=== PATIENT | male | born 1945 | race Caucasian/White ===

== ENCOUNTER 2023-01-30 21:33 | Outpatient (CLI) | payer MEDICARE, SELFPAY | END 2023-01-30 21:34 | disposition home or self-care (01) | LOC: AMB 01-31 11:58 | PROVIDERS: PCP Surgery; Visit Provider Family Medicine | DX: R07.89 Other chest pain (principal) | CPT/HCPCS: A0425; A0427 ==

== ENCOUNTER 2023-01-30 21:59 | Emergency (ER) | payer MEDICARE, SELFPAY ==
[2023-01-30] VITALS (13 sets, daily range): BP systolic 80–120; BP diastolic 40–94; PULSE 44–59; RESP 11–23; TEMP 35.6; O2SAT 91–99; BMI 23.4
--- NOTE | 2023-01-30 22:02 | CRLHL7_ITS ---
For Patients: As a result of the Cures Act, medical imaging exams and procedure reports are released immediately into your electronic medical record. You may view this report before your referring provider. If you have questions, please contact your health care provider. INDICATION: Chest pressure. TECHNIQUE: Chest 1 view. COMPARISON: March 15, 2020. FINDINGS: Cardiovascular and mediastinum: Cardiomediastinal silhouette is within normal limits. Lungs and pleural spaces: Lungs are clear. No evidence of pleural effusion. No pneumothorax identified. Bones and soft tissues: Unremarkable. Median sternotomy wires are noted. IMPRESSION: No acute cardiopulmonary process identified. No significant interval change. Dictated by Domenico Melendez MD @ 01/30/2023 11:01:47 PM (Electronically Signed)
[2023-01-30] MEDS: ONDANSETRON 2 MG/ML inj 4 MG IVP (22:15)
[2023-01-30] MEDS: MORPHINE 4 MG/ML INJ IVP (22:20)
--- NOTE | 2023-01-30 22:20 | ED.CHESTPAIN ---
HPI - Chest Pain General Chief Complaint: Chest Pain Stated Complaint: Chest Pain Time Seen by Provider: 01/30/23 22:02 History of Present Illness HPI narrative: 77-year-old man with a history of coronary artery disease with history of bypass and stenting about an hour prior to arrival in the emergency department and had, while at rest, abrupt onset of severe chest tightness and pressure. Has been making him feel short of breath. Was in usual state of health prior to this. He described alternatively like indigestion as well to EMS. Is not getting regular medical cares. He is unclear initial interview about where he has received cares and degree of pain but EMS says that he had rated 8/10. He does become nauseated during initial interview/triage. EMS has given aspirin and fentanyl. He remains in pain. No heart failure history on brief review of records. Related Data Allergies Allergy/AdvReac Type Severity Reaction Status Date / Time No Known Drug Allergies Allergy Verified 01/30/23 22:28 Review of Systems Status of ROS Reports: 10 or more systems reviewed and unremarkable except as noted in History and below Exam Narrative Exam Narrative: Mr. Downing arrives with eyes closed clearly uncomfortable. Breathing easily. Skin looks sallow/greene. He is diaphoretic. Mucous membranes are moist. Lungs appear to be clear. Heart in regular rate and rhythm. Extremities are well perfused without edema. Moving all extremities without difficulty. Numerous 2 through 12 look to be intact. Abdomen is soft seems little tender in the epigastrium on initial palpation though on repeat this is not the case. No pulsatile masses. Pain is not reproducible to palpation across the chest. He has well-healed scar consistent with sternotomy. Const Vital Signs, click to edit/add: Vital Signs - 24 hr 01/30/23 22:23 01/30/23 22:26 01/30/23 22:04 Temperature 96.0 F L 96.0 F L Pulse Rate 48 L Pulse Rate [Right Pulse Oximeter] 50 L Respiratory Rate 16 16 18 Blood Pressure 105/57 L Blood Pressure [Right Upper Arm] 113/94 H 120/57 L Pulse Oximetry 97 96 Oxygen Delivery Method Nasal Cannula Room Air Oxygen Flow Rate 4 01/30/23 22:08 01/30/23 22:10 01/30/23 22:15 Temperature Pulse Rate Pulse Rate [Right Pulse Oximeter] 59 L 57 L 50 L Respiratory Rate 20 23 21 Blood Pressure Blood Pressure [Right Upper Arm] 105/57 L 113/94 H 80/40 L Pulse Oximetry 91 93 96 Oxygen Delivery Method Oxygen Flow Rate 01/30/23 22:18 01/30/23 22:20 01/30/23 22:25 Temperature Pulse Rate Pulse Rate [Right Pulse Oximeter] 47 L 52 L 44 L Respiratory Rate 17 11 L 16 Blood Pressure Blood Pressure [Right Upper Arm] 95/46 L 93/47 L 89/47 L Pulse Oximetry 98 96 97 Oxygen Delivery Method Oxygen Flow Rate 01/30/23 22:30 01/30/23 22:35 01/30/23 23:03 Temperature Pulse Rate Pulse Rate [Right Pulse Oximeter] 53 L 45 L Respiratory Rate 16 20 Blood Pressure Blood Pressure [Right Upper Arm] 97/45 L 95/53 L Pulse Oximetry 96 99 94 Oxygen Delivery Method Nasal Cannula Oxygen Flow Rate 2 01/30/23 23:04 Temperature Pulse Rate Pulse Rate [Right Pulse Oximeter] Respiratory Rate Blood Pressure Blood Pressure [Right Upper Arm] Pulse Oximetry 97 Oxygen Delivery Method Nasal Cannula Oxygen Flow Rate 2 Documenting provider has reviewed patient's vital signs: yes Course Vital Signs Vital signs: Initial Vital Signs Respiratory Rate 18 01/30/23 22:04 Blood Pressure 120/57 L 01/30/23 22:04 Blood Pressure Mean 78 01/30/23 22:04 Blood Pressure Position High-Fowlers 01/30/23 22:04 Vital Signs Respiratory Rate 18 01/30/23 22:04 Blood Pressure 120/57 L 01/30/23 22:04 Temperature 96.0 F L 01/30/23 22:26 Pulse Rate 45 L 01/30/23 22:35 Respiratory Rate 20 01/30/23 22:35 Blood Pressure 95/53 L 01/30/23 22:35 Pulse Oximetry 97 01/30/23 23:04 Oxygen Delivery Method Nasal Cannula 01/30/23 23:04 Oxygen Flow Rate 2 01/30/23 23:04 MDM - Chest Pain MDM Narrative Medical decision making narrative: EKG on review from EMS does appear to show STEMI inferior wall. EKG obtained here with same on my read. Complaining of nausea as ordered for Zofran. Already has a couple lines going. We have initiated After 1st nitro pain 0-2 continues with eyes closed appears to be uncomfortable. After reviewing initial EKG place a call to [facility] as I believe him to be an [facility] patient. And we call for helicopter. Unfortunately helicopter would not be arriving here for at least 40 minutes. Initiating level 1 medication protocols and asking ground crew who brought Mr. Watson in to take him to [facility] as they have accepted him in cares. Point of care troponin I does return at 0.63 Chest x-ray reviewed seems to show some left auricular maybe pulmonary trunk fullness, no infiltrate, no pneumothorax, sternotomy wires are noted, normal mediastinum otherwise. On 2 L of fluid bolus with soft pressures drifting to 80s over 40s. Have hung a 3rd bag. Do not see evidence of otherwise of heart failure. There are concerns though of fluid overload potential. Hanging norepinephrine drip if needed. I have discussed this also with mobile battery technician Dr. Carroll. Medical Records Data Attestation: I reviewed the patient's medical records. Lab Data Attestation: I reviewed the patient's lab results. Labs: Lab Results 01/30/23 01/30/23 01/30/23 Range/Units 22:03 22:08 22:08 WBC 8.75 (4.50-11.00) K/uL RBC 4.78 (4.30-5.90) m/uL Hgb 14.4 (13.5-17.5) gm/dL Hct 42.9 (37.0-53.0) % MCV 90 (80-100) fL MCH 30 (26-34) pg MCHC 34 (32-36) gm/dL Plt Count 188 (140-440) K/uL Neut % (Auto) 71.0 (42.0-72.0) % Lymph % (Auto) 18.7 L (20-44) % [place] % (Auto) 6.6 (0.0-11.0) % Eos % (Auto) 2.7 (0.0-7.0) % Baso % (Auto) 0.3 (0.0-3.0) % Neut # (Auto) 6.20 (1.7-7.0) K/uL Lymph # (Auto) 1.60 (0.90-2.90) K/uL [place] # (Auto) 0.60 (0.00-0.90) K/UL Eos # (Auto) 0.20 (0.00-0.50) K/uL Baso # (Auto) 0.00 (0.00-0.30) K/uL INR 0.99 (0.91-1.10) APTT 29 (23-33) Seconds D-Dimer Quant (PE/DVT) Cancelled 0.74 H Sodium 140 (135-149) mmol/L Potassium 4.5 (3.6-5.1) mmol/L Chloride 108 (96-114) mmol/L Carbon Dioxide 24 (20-32) mmol/L BUN 29 (7-30) mg/dL Creatinine 1.4 (0.5-1.5) mg/dL Estimated Creat Clear 38.61 Estimated GFR 51 ml/min Glucose 125 H (60-115) mg/dL Calcium 8.9 (8.4-10.6) mg/dL Total Bilirubin 0.6 (0.1-1.5) mg/dL Direct Bilirubin 0.4 (0.0-0.5) mg/dL AST 28 (12-35) U/L ALT 20 (4-50) U/L Alkaline Phosphatase 86 (40-150) U/L Troponin I 0.81 H* (0.01-0.04) ng/mL C-Reactive Protein 1.2 H (0.5-1.0) mg/dL NT-Pro-B Natriuret Pep 980 pg/mL Total Protein 7.6 (6.0-8.3) g/dL Albumin 4.4 (3.3-5.0) g/dL SARS-CoV-2 (PCR) (Negative) Influenza Type A (PCR) (Negative) Influenza Type B (PCR) (Negative) POC Troponin I 0.63 H (0.01-0.04) ng/ml 01/30/23 Range/Units 22:32 WBC (4.50-11.00) K/uL RBC (4.30-5.90) m/uL Hgb (13.5-17.5) gm/dL Hct (37.0-53.0) % MCV (80-100) fL MCH (26-34) pg MCHC (32-36) gm/dL Plt Count (140-440) K/uL Neut % (Auto) (42.0-72.0) % Lymph % (Auto) (20-44) % [place] % (Auto) (0.0-11.0) % Eos % (Auto) (0.0-7.0) % Baso % (Auto) (0.0-3.0) % Neut # (Auto) (1.7-7.0) K/uL Lymph # (Auto) (0.90-2.90) K/uL [place] # (Auto) (0.00-0.90) K/UL Eos # (Auto) (0.00-0.50) K/uL Baso # (Auto) (0.00-0.30) K/uL INR (0.91-1.10) APTT (23-33) Seconds D-Dimer Quant (PE/DVT) Sodium (135-149) mmol/L Potassium (3.6-5.1) mmol/L Chloride (96-114) mmol/L Carbon Dioxide (20-32) mmol/L BUN (7-30) mg/dL Creatinine (0.5-1.5) mg/dL Estimated Creat Clear Estimated GFR ml/min Glucose (60-115) mg/dL Calcium (8.4-10.6) mg/dL Total Bilirubin (0.1-1.5) mg/dL Direct Bilirubin (0.0-0.5) mg/dL AST (12-35) U/L ALT (4-50) U/L Alkaline Phosphatase (40-150) U/L Troponin I (0.01-0.04) ng/mL C-Reactive Protein (0.5-1.0) mg/dL NT-Pro-B Natriuret Pep pg/mL Total Protein (6.0-8.3) g/dL Albumin (3.3-5.0) g/dL SARS-CoV-2 (PCR) Negative SARS-CoV-2 (Negative) Influenza Type A (PCR) Negative PCR FLU A (Negative) Influenza Type B (PCR) Negative PCR FLU B (Negative) POC Troponin I (0.01-0.04) ng/ml ECG Data Attestation: I personally reviewed and interpreted this ECG as follows: (Looks to show inferior STEMI in regular rhythm at a rate of 65) Critical Care Time Critical Care Time Total Critical Care Time in Minutes: 45 Discharge Plan Discharge Clinical Impression: ST elevation (STEMI) myocardial infarction Patient Disposition: [facility] Condition: Critical Stand Alone Forms: MyHealth Info Instructions Discharge Comment: pt transferred to [place] medical lab scientist @ [phone]
[2023-01-30 22:23] LABS: Hematocrit 42.9 % (37.0-53.0); Hemoglobin* 14.4 gm/dL (13.5-17.5); Lymphocytes Percent Auto 18.7 % (20-44); Mean Corpuscular HGB Conc 34 gm/dL (32-36); Mean Corpuscular Hemoglobin 30 pg (26-34); Mean Corpuscular Volume 90 fL (80-100); Platelet Count* 188 K/uL (140-440); Red Blood Count 4.78 m/uL (4.30-5.90); White Blood Count* 8.75 K/uL (4.50-11.00)
[2023-01-30] MEDS: TICAGRELOR 90 MG TABLET 180 MG PO (22:23)
[2023-01-30 22:24] LABS: Basophils Percent Auto 0.3 % (0.0-3.0); Eosinophils Percent Auto 2.7 % (0.0-7.0); Monocytes Percent Auto 6.6 % (0.0-11.0); Slide Review Reflex No
[2023-01-30] MEDS: 0.9 % SODIUM CHLORIDE 1000 ml 1,000 ML IV (22:25)
[2023-01-30 22:27] LABS: INR 0.99 (0.91-1.10); Prothrombin Time 13.7 Seconds
[2023-01-30 22:28] LABS: Partial Thromboplastin Time* 29 Seconds (23-33)
[2023-01-30 22:30] LABS: Albumin* 4.4 g/dL (3.3-5.0); Chloride* 108 mmol/L (96-114)
[2023-01-30 22:31] LABS: D Dimer Quantitative* 0.74 ug/ml (0.00-0.50); Potassium* 4.5 mmol/L (3.6-5.1); Sodium* 140 mmol/L (135-149)
[2023-01-30 22:33] LABS: Creatinine* 1.4 mg/dL (0.5-1.5); Est. Creatinine Clearance* 38.61; Estimated Glomerular Filt Rate 51 ml/min
[2023-01-30 22:34] LABS: Alanine Aminotransferase* 20 U/L (4-50); Alkaline Phosphatase* 86 U/L (40-150); Aspartate Amino Transferase* 28 U/L (12-35); Bilirubin Direct* 0.4 mg/dL (0.0-0.5); Bilirubin Total* 0.6 mg/dL (0.1-1.5); Blood Urea Nitrogen* 29 mg/dL (7-30); Calcium* 8.9 mg/dL (8.4-10.6); Carbon Dioxide* 24 mmol/L (20-32); Glucose* 125 mg/dL (60-115); Total Protein* 7.6 g/dL (6.0-8.3)
[2023-01-30 22:36] LABS: C Reactive Protein* 1.2 mg/dL (0.5-1.0)
[2023-01-30] MEDS: HEPARIN 5,000 UNIT/0.5 ML INJ 4000 UNIT IVP (22:42)
[2023-01-30 22:44] LABS: NT Pro B Type NatriureticPept* 980 pg/mL
[2023-01-30 22:47] LABS: Troponin I* 0.81 ng/mL (0.01-0.04)
[2023-01-30 22:49] LABS: Troponin, Point-of-Care* 0.63 ng/ml (0.01-0.04)
--- NOTE | 2023-01-30 22:49 | ED.NURSE ---
Pt transferred via EMS to [place] labor relations or personnel negotiator. Pt left at [phone] via ems
--- NOTE | 2023-01-30 22:50 | ED.NURSE ---
2217 POC, Trop resulted 0.63. Dr. Castano present upon result and verbally acknowledged result.
[2023-01-30 23:11] LABS: PCR FLU A Negative PCR FLU A (Negative); PCR FLU B Negative PCR FLU B (Negative)
[2023-01-30 23:12] LABS: SARS PCR* Negative SARS-CoV-2 (Negative)
== END 2023-01-30 22:45 | disposition short-term general hospital (02) ==
PROVIDERS: Emergency Provider Family Medicine; PCP Surgery
DX: I21.3 ST elevation (STEMI) myocardial infarction of unspecified site (principal)
CPT/HCPCS: 36415; 71045; 80048; 80076; 83880; 84484; 85025; 85027; 85379; 85610; 85730; 86140; 87631; 93005; 94761; 96374; 96375; 99285; 99291; A9270; G0390; J1644; J2270; J2405; J7030

== ENCOUNTER 2023-01-30 22:34 | Outpatient (CLI) | payer MEDICARE, SELFPAY | END 2023-01-30 22:35 | disposition home or self-care (01) | LOC: AMB 01-31 12:17 | PROVIDERS: PCP Surgery; Visit Provider Family Medicine | DX: I21.3 ST elevation (STEMI) myocardial infarction of unspecified site (principal) | CPT/HCPCS: A0425; A0434 ==

== ENCOUNTER 2023-11-05 16:21 | Emergency (ER) | payer MEDICARE, SELFPAY ==
[2023-11-05 16:25] VITALS: BP 140/91; PULSE 74; RESP 18; TEMP 36.5; O2SAT 98; BMI 24.1
--- NOTE | 2023-11-05 16:35 | CRLHL7_ITS ---
For Patients: As a result of the Century Cures Act, medical imaging exams and procedure reports are released immediately into your electronic medical record. You may view this report before your referring provider. If you have questions, please contact your health care provider. Indication: Fall, injury Technique: Noncontrast axial CT of the cervical spine with coronal and sagittal reformats. Comparison: Same day CT head, CT cervical spine 12/19/2020 Findings: Preserved cervical lordosis. Degenerative grade 1 retrolisthesis at C3-4. Vertebral body heights are maintained. No acute fracture identified. Craniocervical junction appears within normal limits. Posterior disc-osteophyte complex at C3-4 contributes to at least moderate spinal canal stenosis. Uncovertebral and/or facet arthropathy contribute to multilevel neural foraminal stenosis, ranging from moderate to severe bilaterally at C3-4, on the left at C4-5, bilaterally at C5-6. No suspicious findings identified in the paraspinal soft tissues. Included lung apices are clear. Impression: 1. No CT evidence of acute fracture or traumatic malalignment in the cervical spine. 2. Cervical spondylosis with at least moderate C3-4 spinal canal stenosis and multilevel neural foraminal stenosis as detailed. Please note that all CT scans at this facility use dose modulation, iterative reconstruction, and/or weight-based dosing when appropriate to reduce radiation dose to as low as reasonably achievable. Dictated by Madeline Robles MD @ 11/05/2023 5:11:20 PM (Electronically Signed)
--- NOTE | 2023-11-05 16:35 | CRLHL7_ITS ---
For Patients: As a result of the Century Cures Act, medical imaging exams and procedure reports are released immediately into your electronic medical record. You may view this report before your referring provider. If you have questions, please contact your health care provider. INDICATION: Fall, injury TECHNIQUE: Noncontrast axial CT of the head. Coronal and sagittal reformats. Bone and soft tissue algorithms. COMPARISON: CT head 12/19/2020 FINDINGS: Left eyebrow soft tissue laceration. No skull fracture. No acute intracranial hemorrhage or abnormal extra-axial fluid collection. Mild generalized cerebral volume loss. Mild scattered periventricular white matter hypoattenuation, typical of chronic microangiopathy. Midline structures are unremarkable. Calcific intracranial atherosclerotic plaquing. Clear paranasal sinuses and mastoid air cells. Bilateral lens implants IMPRESSION: Left eyebrow laceration. No skull fracture or acute intracranial hemorrhage identified. Please note that all CT scans at this facility use dose modulation, iterative reconstruction, and/or weight-based dosing when appropriate to reduce radiation dose to as low as reasonably achievable. Dictated by Madeline Robles MD @ 11/05/2023 5:07:21 PM (Electronically Signed)
--- NOTE | 2023-11-05 16:36 | ED.GENADULT ---
HPI - General Adult General Chief complaint: Fall/Minor Trauma Stated complaint: Fell, hit head Time Seen by Provider: 11/05/23 16:28 History of Present Illness HPI narrative: This 78-year-old male comes in for evaluation of an injury that occurred prior to arrival. He states that he misstepped and tripped on a curb. He fell and hit his head and has a laceration over the left eyebrow. He states that he did not lose consciousness. He does not report any neck pain or other injury. He does have an abrasion on his left hand. He states that he is not on any anticoagulants but his chart shows that he is taking aspirin and Brilinta. Related Data Home Medications Medication Instructions Recorded Confirmed aspirin 81 mg chewable tablet 1 tab PO DAILY 10/19/23 10/19/23 atorvastatin 40 mg tablet 40 mg PO DAILY 10/19/23 10/19/23 bromfenac 0.07 % eye drops drp ophthalmic (eye) 10/19/23 10/19/23 (Prolensa) fluoxetine 20 mg capsule 20 mg PO DAILY 10/19/23 10/19/23 furosemide 20 mg tablet 20 mg PO DAILY 10/19/23 10/19/23 losartan 25 mg tablet 12.5 mg PO DAILY 10/19/23 10/19/23 metoprolol succinate 25 mg 25 mg PO BID 10/19/23 10/19/23 tablet,extended release 24 hr moxifloxacin 0.5 % eye drops drp ophthalmic (eye) 10/19/23 10/19/23 prednisolone acetate 1 % eye drp ophthalmic (eye) 10/19/23 10/19/23 drops,suspension ticagrelor 90 mg tablet (Brilinta) 90 mg PO BID 10/19/23 10/19/23 Allergies Allergy/AdvReac Type Severity Reaction Status Date / Time No Known Drug Allergies Allergy Verified 01/30/23 22:28 Review of Systems Status of ROS: Reports: 10 or more systems reviewed and unremarkable except as noted in History and below Narrative: Constitutional: No fevers, no weight gain or loss. Eyes: No discharge. No vision changes. HENT: No congestion, no sore throat, no ear pain. Cardiovascular: No chest pain, no palpitations. Respiratory: No shortness of breath, no wheezes, no cough. Gastrointestinal: No abdominal pain, no vomiting, no diarrhea. Genitourinary: No dysuria, no hematuria. Musculoskeletal: Normal range of motion. Skin: No rashes, no pruritis. Neurological: No dizziness, weakness, sensory change, speech change. Endo/Heme/Allergies: No bruising or bleeding. No polydipsia. Pysch: no suicidality, no anxiety, no insomnia. All other systems reviewed and are negative. [facility] Social History Smoking Status: Never smoker Do you use any of these nicotine containing products: None Second hand tobacco smoke exposure: No How often do you have a drink containing alcohol: never How often do you have six or more drinks on one occasion: Never AUDIT-C Alcohol total score: 0 Non-prescribed substance use: denies use service: No Exam Narrative: Exam Narrative: Constitutional: Well-developed, well-nourished, no acute distress. HEENT: 7 cm linear laceration over the left eyebrow. Neck: Normal range of motion. Nontender. Supple. Heart: Regular. No murmurs. Normal rate. Intact distal pulses. Lungs: Clear to auscultation. No chest discomfort. No wheezes, rhonchi, or rales. Abdomen: Normal bowel sounds. Nontender. No rebound tenderness. Genitalia: Deferred. Back: No midline tenderness. Normal range of motion. Extremities: Normal range of motion. No injury. Skin tear on the left hand. Skin: Intact. No rash. Warm. No erythema or pallor. Neurologic: No altered sensation. No weakness. Alert and oriented. Psychiatric: No suicidality. No anxiety or depression. No insomnia. Nursing notes and vitals signs are reviewed. Const: Vital Signs, click to edit/add: Vital Signs - 24 hr 11/05/23 16:25 Temperature 97.7 F Pulse Rate [Pulse Oximeter] 74 Respiratory Rate 18 Blood Pressure [Ri ght Upper Arm] 140/91 H Pulse Oximetry 98 Oxygen Delivery Me thod Room Air Course Vital Signs Vital signs: Initial Vital Signs Temperature 97.7 F 11/05/23 16:25 Temperature Source Temporal Artery Scan 11/05/23 16:25 Pulse Rate 74 11/05/23 16:25 Respiratory Rate 18 11/05/23 16:25 Blood Pressure 140/91 H 11/05/23 16:25 Blood Pressure Mean 107 H 11/05/23 16:25 Blood Pressure Position Supine 11/05/23 16:25 Pulse Oximetry 98 11/05/23 16:25 Oxygen Delivery Method Room Air 11/05/23 16:25 Vital Signs Temperature 97.7 F 11/05/23 16:25 Pulse Rate 74 11/05/23 16:25 Respiratory Rate 18 11/05/23 16:25 Blood Pressure 140/91 H 11/05/23 16:25 Pulse Oximetry 98 11/05/23 16:25 Oxygen Delivery Method Room Air 11/05/23 16:25 Temperature 97.7 F 11/05/23 16:25 Pulse Rate 74 11/05/23 16:25 Respiratory Rate 18 11/05/23 16:25 Blood Pressure 140/91 H 11/05/23 16:25 Pulse Oximetry 98 11/05/23 16:25 Oxygen Delivery Method Room Air 11/05/23 16:25 Medical Decision Making MDM Narrative Medical decision making narrative: This patient fell and has a laceration on his forehead. He C-collar was placed on arrival here. He does not report any headache and has no neurologic deficits. CT imaging of the head and C-spine returned with no acute findings. His wound was cleansed after anesthesia with 1% lidocaine with epinephrine. I then placed 7 sutures in interrupted fashion using 4.0 Ethilon suture. Instructions were given regarding wound care and the need to return for suture removal in 5-[address] scan - head: Radiologist's impression: Left eyebrow laceration. No skull fracture or acute intracranial hemorrhage identified. CT Cervical Spine: Radiologist's impression: 1. No CT evidence of acute fracture or traumatic malalignment in the cervical spine. 2. Cervical spondylosis with at least moderate C3-4 spinal canal stenosis and multilevel neural foraminal stenosis as detailed. Discharge Plan Discharge Clinical Impression: Eyebrow laceration Patient Disposition: Home w/ Parent or Adult Condition: Improved Additional Instructions: Keep wound clean and dry. Follow up with urgent care or clinic in 5-7 days for suture removal. Return if worsening. Prescriptions: No Action prednisolone acetate 1 % drops,suspension ophthalmic (eye) fluoxetine 20 mg capsule 20 mg PO DAILY Brilinta 90 mg tablet 90 mg PO BID losartan 25 mg tablet 12.5 mg PO DAILY metoprolol succinate 25 mg tablet extended release 24 hr 25 mg PO BID furosemide 20 mg tablet 20 mg PO DAILY atorvastatin 40 mg tablet 40 mg PO DAILY aspirin 81 mg tablet,chewable 1 tab PO DAILY moxifloxacin 0.5 % drops ophthalmic (eye) Prolensa 0.07 % drops ophthalmic (eye) Follow Up/Referrals: Jordon Watkins MD [Primary Care Provider] - Stand Alone Forms: My [employer] Info Instructions
== END 2023-11-05 18:35 | disposition home or self-care (01) ==
PROVIDERS: Emergency Provider Emergency Medicine Emergency Medical Services; PCP Surgery
DX: S01.112A Laceration without foreign body of left eyelid and periocular area, initial encounter (principal); W18.09XA Striking against other object with subsequent fall, initial encounter
CPT/HCPCS: 12014; 70450; 72125; 99283; 99284

== ENCOUNTER 2024-10-12 11:47 | Outpatient (CLI) | payer MEDICARE, SELFPAY | END 2024-10-12 11:48 | disposition home or self-care (01) | LOC: AMB 10-13 15:39 | PROVIDERS: PCP Surgery; Visit Provider Emergency Medicine | DX: R53.1 Weakness (principal); F03.90 Unspecified dementia, unspecified severity, without behavioral disturbance, psychotic disturbance, mood disturbance, and anxiety | CPT/HCPCS: A0425; A0429 ==